=== PATIENT | female | born 1995 | race Caucasian/White ===

== ENCOUNTER 2020-02-22 12:46 | Outpatient (CLI) | payer BC ==
[~2020-02-22] VITALS: Ht 170.2 cm; Wt 69.1 kg
--- NOTE | 2020-02-22 12:50 | NUR ---
Patient ambulatory onto unit for evaluation with report of "period-like cramps this morning and blood in my urine". Patient into room, changes into gown, UA obtained. FHR obtained - 150s. VS taken. to bedside for speculum exam and SVE. SVE closed per provider. Assessment completed. UA to lab. Will continue to monitor.
[2020-02-22 13:00] VITALS: BP 137/81; PULSE 68; TEMP 98
[2020-02-22] MEDS ORDERED: PRENATAL VITAMI1 TA3 PO (13:07)
[2020-02-22 13:22] LABS: COLLECTION METHOD CLEAN CATCH
[2020-02-22 13:42] LABS: PH 6 (5-8); SQUAMOUS EPITHELIAL 0-2 /hpf; URINE APPEARANCE Hazy; URINE BACTERIA Rare /hpf; URINE BILIRUBIN Negative (NEGATIVE); URINE BLOOD 3+ (NEGATIVE); URINE COLOR Yellow; URINE GLUCOSE Negative (NEGATIVE); URINE KETONE Trace (NEGATIVE); URINE LEUKOCYTE ESTERASE Negative (NEGATIVE); URINE NITRATE Negative (NEGATIVE); URINE PROTEIN(semi-quant) 1+ (NEGATIVE); URINE RBC >50 /hpf; URINE UROBILINOGEN Negative (NEGATIVE)
--- NOTE | 2020-02-22 13:55 | NUR ---
and this commercial review appraiser plan of care with patient. Patient ambulatory off of unit at this time with discharge instructions and return precautions.
== END 2020-02-22 13:55 | disposition home or self-care (01) ==
LOC: LDRO 12:46
PROVIDERS: Student in an Organized Health Care Education/Training Program
DX: O26.892 Other specified pregnancy related conditions, second trimester (principal); R25.2 Cramp and spasm; R31.9 Hematuria, unspecified; Z3A.21 21 weeks gestation of pregnancy

== ENCOUNTER → 2020-03-25 | Outpatient (CLI) | payer BC ==
[~2020-03-25] MED LIST: PRENATAL VITAMI1 TA3 PO
== END ==
LOC: COL.RAD 13:04
DX: O26.892 Other specified pregnancy related conditions, second trimester (principal); N13.2 Hydronephrosis with renal and ureteral calculous obstruction; Z3A.26 26 weeks gestation of pregnancy

== ENCOUNTER → 2020-04-09 | Outpatient (CLI) | payer BC ==
[~2020-04-09] MED LIST changes: +IBU600 MG PO
== END ==
LOC: COL.RAD 11:49
DX: O26.833 Pregnancy related renal disease, third trimester (principal); N13.2 Hydronephrosis with renal and ureteral calculous obstruction; Z3A.27 27 weeks gestation of pregnancy

== ENCOUNTER → 2020-05-11 | Outpatient (CLI) | payer BC | LOC: COL.RAD 12:36 | DX: O26.833 Pregnancy related renal disease, third trimester (principal); N13.39 Other hydronephrosis; Z3A.00 Weeks of gestation of pregnancy not specified ==

== ENCOUNTER → 2020-07-02 | Outpatient (CLI) | payer BC | LOC: ZCOL.LAB 08:00 | DX: Z20.822 Contact with and (suspected) exposure to COVID-19 (principal) ==

== ENCOUNTER 2020-07-05 21:25 | Outpatient (CLI) | payer BC ==
[~2020-07-05] VITALS: Ht 170.2 cm; Wt 78.2 kg
[~2020-07-05 21:25] MED LIST changes: -IBU600 MG PO
--- NOTE | 2020-07-05 21:30 | NUR ---
Ambulatory to unit for labor assessment, accompanied by spouse. Oriented to room, monitor, plan of care. Questions invited and answered. Pt reports "I was at the [facility] office today, and he swept my membranes. The contractions started getting more regular 1 hour ago. I was 1 cm dilated." Pt reports pain a 1 on a 1-10 scale. SVE as noted, with 'old bloody show' noted on exam gloce. No loss of fluid.
[2020-07-05 21:45] VITALS: BP 132/76; PULSE 63; TEMP 98.4
[2020-07-05 22:50] VITALS: BP 118/70; PULSE 66
--- NOTE | 2020-07-05 22:55 | NUR ---
SVE with no changes noted.
--- NOTE | 2020-07-05 23:20 | NUR ---
discharge instructions reviewed with pt and spouse. questions invited and answered. Ambulatory off unit.
== END 2020-07-05 23:20 | disposition home or self-care (01) ==
LOC: LDRO 21:25 → LDR 22:00 → LDRO 22:01 → LDR 22:01 → LDRO 23:20
DX: O62.9 Abnormality of forces of labor, unspecified (principal); Z3A.40 40 weeks gestation of pregnancy
CPT/HCPCS: OP

== ENCOUNTER 2020-07-06 16:12 | Inpatient (IN) | payer BC ==
[2020-07-06] VITALS (22 sets, daily range): BP systolic 17–157; BP diastolic 62–101; PULSE 54–96; TEMP 98.3
[~2020-07-06] VITALS: Ht 170.2 cm; Wt 77.7 kg
--- NOTE | 2020-07-06 15:55 | NUR ---
Note patient admits to L&D for c/o contractions increasing in strength. Ambulatory, accompanied by spouse. Note patient is post dates, GBS negative. Patient reports positive movement. Denies leaking fluid, or bloody show.
--- NOTE | 2020-07-06 17:30 | NUR ---
Upright on birthing ball following AROM. Clear fluid noted, patient tolerating pain of contractions well.
[2020-07-06 17:51] LABS: BASO # 0.1 (0.0-0.2); BASO % 0.4 % (0.0-2.0); EOS # 0.1 (0.0-0.7); EOS % 0.8 % (0-4.0); GRAN # 9.3 (1.4-6.5); GRAN % 76.4 % (42.2-75.2); HEMATOCRIT 37.6 % (37.0-47.0); HEMOGLOBIN 12.9 g/dl (12.5-16.0); LYMPH # 1.7 (1.2-3.4); LYMPH % 13.8 % (20.0-51.0); MEAN CELL VOLUME 84 fl (80.0-100.0); MEAN CORPUSCULAR HEMOGLOBIN 29 pg (27.0-31.0); MEAN CORPUSCULAR HGB CONC 34 g/dl (33.0-37.0); MONO # 0.9 (0.1-0.6); MONO % 7.3 % (1.7-9.3); PLATELET COUNT 152 K/mm3 (130-400); RED BLOOD COUNT 4.47 M/mm3 (4.10-5.30); REDCELL DISTRIBUTION WIDTH-CV 12.6 % (11.5-14.5)
[2020-07-06 18:03] LABS: ALBUMIN 3.9 gm/dL (3.5-5.0); BILIRUBIN,TOTAL 0.5 mg/dL (0.0-1.0); CALCIUM 8.9 mg/dL (8.4-10.2); CREATININE, serum 0.64 (0.52-1.25); POTASSIUM 3.7 mmol/L (3.4-5.0); TOTAL PROTEIN 7.1 gm/dL (6.4-8.2)
--- NOTE | 2020-07-06 18:15 | NUR ---
Hands and knees on floor, pillow under knees, per patient request for comfort. Note patient hugging birthing ball during contractions, making it difficult to continuously trace FHT.
--- NOTE | 2020-07-06 18:15 | NUR ---
1815 ON FLOOR ON HAND AND KNEES. VERY CONTROLLED
--- NOTE | 2020-07-06 18:30 | NUR ---
1830 RETURNED TO BED. [facility] HAS A LOT OF PRESSURE. SVE 8/100/0. REMAINS IN BED.
--- NOTE | 2020-07-06 19:00 | NUR ---
1900 C/O LOTS OF RECTAL PRESSURE. REQUEST VAG EXAM. 8/100/0. RETURN TO HANDS AND KNEES ON FLOOR.
--- NOTE | 2020-07-06 19:45 | NUR ---
1944 DR RAYGOZA CALLED IN FOR PROGRESS REPORT. 1949 IV FLUIDS 1000 CC STARTED IN RIGHT HAND. C/O A LOT OF RECTAL PRESSURE 1957 COMPLETE AND INSTRUCTED TO PUSH WITH CONTRACTIONS.
--- NOTE | 2020-07-06 20:23 | NUR ---
2022 DR RAYGOZA NOTIFIED TO COME TO DELIVERY. CONTS TO PUSH WITH CONTRACTIONS 2034 DR RAYGOZA HERE. READIED FOR DELIVERY. 2043 DELIVERY VIABLE MALE OVER 2ND DEGREE LAC WITH 9//9 APGARS. BABY TO MOMS CHEST. IV'S CONT TO INFUSE.
--- NOTE | 2020-07-06 22:45 | NUR ---
2245 IV INF AND TO INT. UP TO BR WITH ASSIST AND UNABLE TO VOID. PERICARE DONE. ICE PACK ON. AMB TO 207 AND JACOB WELL.
[2020-07-07 04:00] VITALS: BP 114/58; PULSE 62; TEMP 98.6
[2020-07-07 07:00] VITALS: BP 118/55; PULSE 55; TEMP 97.9
--- NOTE | 2020-07-07 09:12 | NUR ---
Initial visit; Parents thanked [employer] for offering congratulations and God's blessings for the of their son. [employer] thanked family for choosing [facility].
[2020-07-07] MEDS ORDERED: IBU600 MG PO (09:31)
[2020-07-07 12:15] VITALS: BP 103/57; PULSE 60; TEMP 97.9
[2020-07-07 16:30] VITALS: BP 118/66; PULSE 76; TEMP 97.9
[2020-07-07 22:30] VITALS: BP 119/52; PULSE 67; TEMP 97.8
[2020-07-08 08:39] VITALS: BP 125/70; PULSE 60; TEMP 98
== END 2020-07-08 15:00 | disposition home or self-care (01) | DRG 807 ==
LOC: LDR 16:12 → OB 23:06 → LDR 07-07 12:45 → OB 07-08 15:00
PROVIDERS: ADMIT Obstetrics & Gynecology
PROC: 10E0XZZ Delivery of Products of Conception, External Approach (ICD-10-PCS; principal; 2020-07-06)
PROC: 0KQM0ZZ Repair Perineum Muscle, Open Approach (ICD-10-PCS; 2020-07-06)
DX: O48.0 Post-term pregnancy (principal); Z37.0 Single live birth; Z3A.41 41 weeks gestation of pregnancy; Z87.442 Personal history of urinary calculi; O62.9 Abnormality of forces of labor, unspecified
CPT/HCPCS: OP; J2590; J7120

== ENCOUNTER → 2021-11-08 | Outpatient (CLI) | payer BC ==
[~2021-11-08] MED LIST changes: +IBU600 MG PO
== END ==
LOC: COL.RAD 10:30
DX: N13.30 Unspecified hydronephrosis (principal); Z87.442 Personal history of urinary calculi